=== PATIENT | female | born 1995 | race African-American/Black ===

== ENCOUNTER 2017-06-11 07:36 | Emergency (ER) | payer OTHER ==
[~2017-06-11] VITALS: Ht 170.2 cm; Wt 81.6 kg
[2017-06-11 07:58] VITALS: BP 172/94
--- NOTE | 2017-06-11 08:22 | PHYS DOC ---
Past Medical History Past Medical History: No Pertinent History Past Surgical History: No Surgical History Alcohol Use: None Drug Use: None Adult General Chief Complaint Chief Complaint: RIB PAIN [facility] HPI Patient is a 22 year old female with no significant medical history who presents today complaining of moderate pain wrapping around her ribs into her back that began this morning. Patient denies the pain waking her up. She states the pain is worse on deep breaths. She states she just had a baby 5 weeks ago, vaginal delivery at [facility]. Patient denies any issues during or delivery. She just started her menstrual cycle today. Patient is requesting we give her pain medicine before she can give us any urine. Informed patient we prefer to have urine do a test and then she can get pain medicine. I even offered a cup of water to drink. Review of Systems Review of Systems Constitutional: Denies fever or chills [] Eyes: Denies change in visual acuity, redness, or eye pain [] HENT: Denies nasal congestion or sore throat [] Respiratory: rib pain wrapping to her back Cardiovascular: No additional information not addressed in HPI [] GI: Denies abdominal pain, nausea, vomiting, bloody stools or diarrhea [] : Denies dysuria or hematuria [] Musculoskeletal: Denies back pain or joint pain [] Integument: Denies rash or skin lesions [] Neurologic: Denies headache, focal weakness or sensory changes [] Endocrine: Denies polyuria or polydipsia [] Current Medications Current Medications Current Medications Medications (Trade) Dose Ordered Sig/Andrade Start Time Stop Time Status Last Admin Dose Admin Sodium Chloride 1,000 ml @ 1,000 mls/hr 1X ONCE 06/11/17 08:45 06/11/17 09:44 Allergies Allergies Allergies Coded Allergies Type Severity Reaction Last Updated Verified No Known Drug Allergies 06/11/17 No Physical Exam Physical Exam Constitutional: Well developed, well nourished, no acute distress, non-toxic appearance. [] HENT: Normocephalic, atraumatic, bilateral external ears normal, oropharynx moist, no oral exudates, nose normal. [] Eyes: PERRLA, EOMI, conjunctiva normal, no discharge. [] Neck: Normal range of motion, no tenderness, supple, no stridor. [] Cardiovascular:Heart rate regular rhythm, no murmur [] Lungs & Thorax: Bilateral breath sounds clear to auscultation [] Abdomen: Bowel sounds normal, soft, no tenderness, no masses, no pulsatile masses. [] Skin: Warm, dry, no erythema, no rash. [] Back: No tenderness, no CVA tenderness. [] Extremities: No tenderness, no cyanosis, no clubbing, ROM intact, no edema. [] Neurologic: Alert and oriented X 3, normal motor function, normal sensory function, no focal deficits noted. [] Psychologic: Affect normal, judgement normal, mood normal. [] Current Patient Data Vital Signs Vital Signs Date Time Temp Pulse Resp B/P (MAP) Pulse Ox O2 Delivery O2 Flow Rate FiO2 06/11/17 07:58 98.0 83 22 100 Room Air 98.0 EKG EKG [] Radiology/Procedures Radiology/Procedures [] Course & Med Decision Making Course & Med Decision Making Pertinent Labs and Imaging studies reviewed. (See chart for details) This is a 22-year-old female patient who presents complaining of moderate rib pain wrapping around her back that began this morning. Patient had vaginal delivery 5 weeks ago. She has no previous medical history. Patient will be worked up for a PE. She has been asking for pain medicines since she arrived in the Ed. 08:26 Patient was informed she has to give us urine on arrival to the ED and we can do a test before we can give her pain medicine otherwise we can give her Tylenol. She states she has been taking Tylenol and it is not working. She continued to refuse to give use urine. She decided to sign out AMA. Dragon Disclaimer Dragon Disclaimer This electronic medical record was generated, in whole or in part, using a voice recognition dictation system. Departure Departure Impression: Primary Impression: Rib pain on right side Additional Impression: Rib pain on left side Disposition: AGAINST MEDICAL ADVICE Condition: STABLE Referrals: LORI CANTRELL MD (PCP) Problem Qualifiers CLOVER JACQUES APRN Jun 11, 2017 08:22
[2017-06-11] MEDS ORDERED: IV NORMAL SALINE 1000ML BAG 1,000 ML IV ONE (08:45)
== END 2017-06-11 08:42 | disposition left against medical advice (07) ==
LOC: ER 07:36
DX: O90.89 Other complications of the puerperium, not elsewhere classified (principal); R07.81 Pleurodynia
CPT/HCPCS: 99284

== ENCOUNTER 2018-10-30 16:04 | Emergency (ER) | payer OTHER ==
[~2018-10-30] VITALS: Ht 170.2 cm; Wt 104.3 kg
[2018-10-30 17:06] VITALS: BP 122/64
[2018-10-30 17:33] LABS: BILIRUBIN,URINE NEGATIVE (NEG); CLARITY,URINE CLOUDY; COLOR,URINE AMBER; NITRITE,URINE NEGATIVE (NEG); PROTEIN,URINE 30 mg/dL (NEG-TRACE)
[2018-10-30 17:39] LABS: SQUAMOUS EPITHELIAL CELL,UR MOD /LPF
[2018-10-30 17:40] LABS: BACTERIA,URINE FEW /HPF (0-FEW)
[2018-10-30] MEDS ORDERED: MICO1KIT75 VG (18:31)
[2018-10-30] MEDS ORDERED: NITR100C62 PO (18:31)
--- NOTE | 2018-10-30 18:31 | PHYS DOC ---
Past Medical History Past Medical History: No Pertinent History Past Surgical History: No Surgical History Alcohol Use: None Drug Use: None Adult General Chief Complaint Chief Complaint: VAGINAL PROBLEM HPI HPI Patient is a 23 year old female who presents with white cheesy discharge vaginally as well as some urinary urgency and frequency. The patient is currently and is seeing her vice investigator regularly for her appointments. She has not used [id number] medications other than vaginal still which she states did not offer relief. Review of Systems Review of Systems Constitutional: Denies fever or chills [] Eyes: Denies change in visual acuity, redness, or eye pain [] HENT: Denies nasal congestion or sore throat [] Respiratory: Denies cough or shortness of breath [] Cardiovascular: No additional information not addressed in HPI [] GI: Denies abdominal pain, nausea, vomiting, bloody stools or diarrhea [] : See history of present illness Musculoskeletal: Denies back pain or joint pain [] Integument: Denies rash or skin lesions [] Neurologic: Denies headache, focal weakness or sensory changes [] Endocrine: Denies polyuria or polydipsia [] All other systems were reviewed and found to be within normal limits, except as documented in this note. Allergies Allergies Allergies Coded Allergies Type Severity Reaction Last Updated Verified No Known Drug Allergies 06/11/17 No Physical Exam Physical Exam Constitutional: Well developed, well nourished, no acute distress, non-toxic appearance. [] Cardiovascular:Heart rate regular rhythm, no murmur [] Lungs & Thorax: Bilateral breath sounds clear to auscultation [] Abdomen: Bowel sounds normal, soft, no tenderness, no masses, no pulsatile masses. [] Skin: Warm, dry, no erythema, no rash. [] Back: No tenderness, no CVA tenderness. [] Extremities: No tenderness, no cyanosis, no clubbing, ROM intact, no edema. [] Neurologic: Alert and oriented X 3, normal motor function, normal sensory function, no focal deficits noted. [] Psychologic: Affect normal, judgement normal, mood normal. [] Current Patient Data Vital Signs Vital Signs Date Time Temp Pulse Resp B/P (MAP) Pulse Ox O2 Delivery O2 Flow Rate FiO2 10/30/18 17:06 98.0 85 16 122/64 (83) 100 Room Air 98.0 Lab Values Laboratory Tests Test 10/30/18 16:52 Urine Collection Type Unknown Urine Color Zeinab Urine Clarity Cloudy Urine pH 7.0 Urine Specific [place] >=1.030 Urine Protein 30 mg/dL (NEG-TRACE) Urine Glucose (UA) Negative mg/dL (NEG) Urine Ketones (Stick) 15 mg/dL (NEG) Urine Blood Negative (NEG) Urine Nitrite Negative (NEG) Urine Bilirubin Negative (NEG) Urine Urobilinogen Dipstick 1.0 mg/dL (0.2 mg/dL) Urine Leukocyte Esterase Small (NEG) Urine RBC 1-2 /HPF (0-2) Urine WBC 1-4 /HPF (0-4) Urine Squamous Epithelial Cells Mod /LPF Urine Bacteria Few /HPF (0-FEW) Urine Mucus Marked /LPF Microbiology 10/30/18 Wet Prep - Final, Complete EKG EKG [] Radiology/Procedures Radiology/Procedures [] Pelvic Exam: Knockup Worker present Abdomen: Nontender External Genitalia: Skin shows slight excoriation and edema Speculum: Normal vaginal mucosa, thick, white cheesy cervical discharge Bimanual: No adnexal masses or tenderness, No CMT Course & Med Decision Making Course & Med Decision Making Pertinent Labs and Imaging studies reviewed. (See chart for details) The patient is positive for a UTI and will be treated with Macrobid as well as with Monistat for her yeast infection. She is in agreement with this plan. Dragon Disclaimer Dragon Disclaimer This electronic medical record was generated, in whole or in part, using a voice recognition dictation system. Departure Departure Impression: Primary Impression: UTI (urinary tract infection) Additional Impression: Yeast infection Disposition: 01 HOME, SELF-CARE Condition: STABLE Referrals: NO PCP (PCP) Patient Instructions: - Urinary Tract Infection Additional Instructions: Take medication as directed. Follow-up with your vice investigator at your next scheduled appointment or return to the emergency department if worsening. Scripts Miconazole Nitrate (MONISTAT 3) 1 Each Kit 1 EACH VG 1X for yeast, #1 EACH Prov: CARMELITA BRANDT APRN 10/30/18 Nitrofurantoin Monohyd/M-Cryst (MACROBID 100 MG CAPSULE) 100 Mg Capsule 1 CAP PO BID for UTI, #14 CAP Prov: CARMELITA BRANDT APRN 10/30/18 Problem Qualifiers CARMELITA BRANDT APRN Oct 30, 2018 18:31
[2018-11-01 19:13] LABS: GC PROBE Negative (Negative)
== END 2018-10-30 18:38 | disposition home or self-care (01) ==
LOC: ER 16:04
DX: B37.49 Other urogenital candidiasis (principal)
CPT/HCPCS: 81001; 87086; 87491; 87591; 99283; Q0111

== ENCOUNTER 2019-05-11 07:57 | Emergency (ER) | payer SELFPAY ==
[~2019-05-11] VITALS: Ht 170.2 cm; Wt 94.8 kg
[~2019-05-11 07:57] MED LIST: MICO1KIT75 VG; NITR100C62 PO
[2019-05-11] MEDS ORDERED: LIDO:MAALOX 1:1 20 ML SINGLE DOSE. ONE (08:23)
[2019-05-11] MEDS ORDERED: LIDO:MAALOX 1:1 20 ML SINGLE DOSE. SWSW ONE (08:30)
--- NOTE | 2019-05-11 08:37 | PHYS DOC ---
Past Medical History Past Medical History: No Pertinent History Past Surgical History: No Surgical History Alcohol Use: None Drug Use: None Adult General Chief Complaint Chief Complaint: GI PROBLEM HPI HPI Patient is a 24 year old female presents to the ER with epigastric pain has been ongoing for several weeks. The patient states that she has been waking up quite a bit around midnight with epigastric pain. States she normally eats dinner around 5:00 to 8:00 at night. He normally goes to bed around 10:00 at night however sometimes it is later. The patient states that he goes away normally after couple hours however did not go away today. The patient presented to the ER eating kyle Simeons. Rates her pain as 8 out of 10 and describes it as sharp. No interventions attempted for this at home. Review of Systems Review of Systems Constitutional: Denies fever or chills [] Eyes: Denies change in visual acuity, redness, or eye pain [] HENT: Denies nasal congestion or sore throat [] Respiratory: Denies cough or shortness of breath [] Cardiovascular: No additional information not addressed in HPI [] GI: Reports epigastric abdominal pain, Denies nausea, vomiting, bloody stools or diarrhea [] : Denies dysuria or hematuria [] Musculoskeletal: Denies back pain or joint pain [] Integument: Denies rash or skin lesions [] Neurologic: Denies headache, focal weakness or sensory changes [] Endocrine: Denies polyuria or polydipsia [] Complete systems were reviewed and found to be within normal limits, except as documented in this note. Current Medications Current Medications Current Medications Medications (Trade) Dose Ordered Sig/Andrade Start Time Stop Time Status Last Admin Dose Admin Multi-Ingredient Mouthwash/Gargle (Gi Cocktail) 20 ml STK-MED ONCE 05/11/19 08:23 05/11/19 08:24 DC Allergies Allergies Allergies Coded Allergies Type Severity Reaction Last Updated Verified No Known Drug Allergies 06/11/17 No Physical Exam Physical Exam Constitutional: Well developed, well nourished, no acute distress, non-toxic appearance. [] HENT: Normocephalic, atraumatic, bilateral external ears normal, oropharynx moist, no oral exudates, throat has erythema, nose normal. [] Eyes: PERRLA, EOMI, conjunctiva normal, no discharge. [] Neck: Normal range of motion, no tenderness, supple, no stridor. [] Cardiovascular:Heart rate regular rhythm, no murmur [] Lungs & Thorax: Bilateral breath sounds clear to auscultation [] Abdomen: Bowel sounds normal, soft, epigastric tenderness, no masses, no pulsatile masses. [] Skin: Warm, dry, no erythema, no rash. [] Back: No tenderness, no CVA tenderness. [] Extremities: No tenderness, no cyanosis, no clubbing, ROM intact, no edema. [] Neurologic: Alert and oriented X 3, normal motor function, normal sensory function, no focal deficits noted. [] Psychologic: Affect normal, judgement normal, mood normal. [] Current Patient Data Vital Signs Vital Signs Date Time Temp Pulse Resp B/P (MAP) Pulse Ox O2 Delivery O2 Flow Rate FiO2 05/11/19 08:02 98.5 79 18 149/97 (114) 97 Room Air 98.5 Lab Values Laboratory Tests Test 05/11/19 08:05 05/11/19 08:09 05/11/19 08:28 Urine Collection Type Unknown Urine Color Yellow Urine Clarity Clear Urine pH 7.0 Urine Specific [place] 1.015 Urine Protein Negative mg/dL (NEG-TRACE) Urine Glucose (UA) Negative mg/dL (NEG) Urine Ketones (Stick) Negative mg/dL (NEG) Urine Blood Negative (NEG) Urine Nitrite Negative (NEG) Urine Bilirubin Negative (NEG) Urine Urobilinogen Dipstick 1.0 mg/dL (0.2 mg/dL) Urine Leukocyte Esterase Moderate (NEG) Urine RBC 0 /HPF (0-2) Urine WBC 5-10 /HPF (0-4) Urine Squamous Epithelial Cells Mod /LPF Urine Bacteria Few /HPF (0-FEW) POC Urine HCG, Qualitative Hcg negative (Negative) White Blood Count 9.4 x10^3/uL (4.0-11.0) Red Blood Count 5.38 x10^6/uL (3.50-5.40) Hemoglobin 12.6 g/dL (12.0-15.5) Hematocrit 38.3 % (36.0-47.0) Mean Corpuscular Volume 71 fL (79-100) L Mean Corpuscular Hemoglobin 23 pg (25-35) L Mean Corpuscular Hemoglobin Concent 33 g/dL (31-37) Red Cell Distribution Width 17.4 % (11.5-14.5) H Platelet Count 263 x10^3/uL (140-400) Neutrophils (%) (Auto) 71 % (31-73) Lymphocytes (%) (Auto) 19 % (24-48) L Monocytes (%) (Auto) 8 % (0-9) Eosinophils (%) (Auto) 2 % (0-3) Basophils (%) (Auto) 0 % (0-3) Neutrophils # (Auto) 6.7 x10^3uL (1.8-7.7) Lymphocytes # (Auto) 1.8 x10^3/uL (1.0-4.8) Monocytes # (Auto) 0.7 x10^3/uL (0.0-1.1) Eosinophils # (Auto) 0.2 x10^3/uL (0.0-0.7) Basophils # (Auto) 0.0 x10^3/uL (0.0-0.2) Platelet Estimate Adequate (ADEQUATE) Microcytosis Present Sodium Level 138 mmol/L (136-145) Potassium Level 4.0 mmol/L (3.5-5.1) Chloride Level 104 mmol/L (98-107) Carbon Dioxide Level 25 mmol/L (21-32) Anion Gap 9 (6-14) Blood Urea Nitrogen 11 mg/dL (7-20) Creatinine 0.8 mg/dL (0.6-1.0) Estimated GFR (Cockcroft-Gault) 104.9 BUN/Creatinine Ratio 14 (6-20) Glucose Level 98 mg/dL (70-99) Calcium Level 8.2 mg/dL (8.5-10.1) L Total Bilirubin 0.9 mg/dL (0.2-1.0) Aspartate Amino Transferase (AST) 18 U/L (15-37) Alanine Aminotransferase (ALT) 37 U/L (14-59) Alkaline Phosphatase 63 U/L (46-116) Total Protein 6.6 g/dL (6.4-8.2) Albumin 3.3 g/dL (3.4-5.0) L Albumin/Globulin Ratio 1.0 (1.0-1.7) Lipase 126 U/L (73-393) Laboratory Tests 05/11/19 08:28 Laboratory Tests 05/11/19 08:28 EKG EKG [] Radiology/Procedures Radiology/Procedures [] Course & Med Decision Making Course & Med Decision Making Pertinent Labs and Imaging studies reviewed. (See chart for details) Patient has epigastric tenderness, was eating Jalepeno Cheetos on arrival, the history is suggestive of gastritis. Will try a GI cocktail. Also will obtain labs to ensure that liver enzymes and lipase is not elevated. Labs are unremarkable. Urine shows leukocytes however it is also contaminated with Epithelial cells, patient is not symptomatic and so will have urine cultur ed and treat based on that. Discussed with patient who was agreeable to this plan. Patient improved with GI cocktail, will d/c home on Protonix and have follow up with a primary care provider. Dragon Disclaimer Dragon Disclaimer This electronic medical record was generated, in whole or in part, using a voice recognition dictation system. Departure Departure Impression: Primary Impression: Gastroesophageal reflux disease Disposition: HOME, SELF-CARE Condition: STABLE Referrals: NO PCP (PCP) Patient Instructions: Diet for Gastroesophageal Reflux Disease, Adult, Gastroesophageal Reflux Disease, Adult Additional Instructions: Thank you for visiting [facility]. We appreciate you trusting us with your care. If any additional problems come up don't hesitate to return to visit us. Please follow up with your primary care provider so they can plan additional care if needed and know about the problem that you had. If symptoms worsen come back to the Emergency Department. Any concerning symptoms that start such as chest pain, shortness of air, weakness or numbness on one side of the body, running high fevers or any other concerning symptoms return to the ER. Please fill your medications at any pharmacy and follow the prescription instructions. Please follow the diet outlined in discharge instruction to see if it helps symptoms. Scripts Pantoprazole Sodium (PROTONIX ) 40 Mg Tablet. 40 MG PO DAILYAC for GERD for 30 Days, #30 TAB Prov: CONOR LADD APRN 05/11/19 Problem Qualifiers Primary Impression: Gastroesophageal reflux disease Esophagitis presence: with esophagitis Qualified Codes: K21.0 - Gastro- esophageal reflux disease with esophagitis CONOR LADD APRN May 11, 2019 08:37
[2019-05-11 08:38] LABS: BASO % 0 % (0-3); EOS # 0.2 x10^3/uL (0.0-0.7); EOS % 2 % (0-3); HEMATOCRIT 38.3 % (36.0-47.0); HEMOGLOBIN 12.6 g/dL (12.0-15.5); LYMPH # 1.8 x10^3/uL (1.0-4.8); LYMPH % 19 % (24-48); MEAN CORPUSCULAR HEMOGLOBIN 23 pg (25-35); MEAN CORPUSCULAR HGB CONC 33 g/dL (31-37); MEAN CORPUSCULAR VOLUME 71 fL (79-100); MONO # 0.7 x10^3/uL (0.0-1.1); MONO % 8 % (0-9); NEUT # 6.7 x10^3uL (1.8-7.7); NEUT % 71 % (31-73); PLATELET COUNT 263 x10^3/uL (140-400); RED BLOOD COUNT 5.38 x10^6/uL (3.50-5.40); RED CELL DISTRIBUTION WIDTH 17.4 % (11.5-14.5); WHITE BLOOD COUNT 9.4 x10^3/uL (4.0-11.0)
[2019-05-11 08:48] LABS: BILIRUBIN,URINE NEGATIVE (NEG); CLARITY,URINE CLEAR; COLOR,URINE YELLOW; NITRITE,URINE NEGATIVE (NEG); PROTEIN,URINE NEGATIVE (NEG-TRACE)
[2019-05-11 08:50] LABS: BACTERIA,URINE FEW /HPF (0-FEW); RBC,URINE 0 /HPF (0-2); SQUAMOUS EPITHELIAL CELL,UR MOD /LPF
[2019-05-11 09:00] LABS: CALCIUM 8.2 mg/dL (8.5-10.1); CREATININE 0.8 mg/dL (0.6-1.0); GFR 104.9
[2019-05-11 09:05] LABS: ALBUMIN 3.3 g/dL (3.4-5.0); TOTAL BILIRUBIN 0.9 mg/dL (0.2-1.0); TOTAL PROTEIN 6.6 g/dL (6.4-8.2)
[2019-05-11 09:50] LABS: PLT ESTIMATE ADEQUATE (ADEQUATE)
[2019-05-11 09:51] LABS: MICROCYTOSIS PRESENT
[2019-05-11 10:05] VITALS: BP 145/87
[2019-05-11] MEDS ORDERED: PANT40TA77 PO (10:10)
== END 2019-05-11 10:35 | disposition home or self-care (01) ==
LOC: ER 07:57
DX: K21.9 Gastro-esophageal reflux disease without esophagitis (principal)
CPT/HCPCS: 36415; 80053; 81001; 81025; 83690; 85025; 87086; 99284

== ENCOUNTER 2019-06-24 19:38 | Emergency (ER) | payer SELFPAY ==
[~2019-06-24] VITALS: Ht 170.2 cm; Wt 94.8 kg
[~2019-06-24 19:38] MED LIST changes: +PANT40TA77 PO
[2019-06-24 19:45] VITALS: BP 168/101
[2019-06-24] MEDS ORDERED: ONDANSETRON ODT 4 MG TAB.RAPDIS. PO ONE (20:00)
[2019-06-24] MEDS ORDERED: LIDO:MAALOX 1:1 20 ML SINGLE DOSE. SWSW ONE (20:00)
--- NOTE | 2019-06-24 20:55 | RAD ---
Limited abdomen ultrasound HISTORY: Right upper quadrant abdominal pain. FINDINGS: The pancreas and upper abdominal aorta and IVC are normal, the lower abdominal segments of the vessels are obscured by bowel gas shadowing. Normal liver echogenicity. No liver mass, nodularity or surface irregularity documented. Upper segments of the liver poorly visualized due to rib shadowing. Hepatopedal portal vein blood flow is documented. Small gallstones are present. No inflammatory changes of the gallbladder. No biliary ductal dilation the common bile duct diameter is 4 mm. Right renal length 10.9 cm. No right renal mass, calculus or hydronephrosis documented. Spleen and left kidney were not evaluated. IMPRESSION: Cholelithiasis. No inflammatory changes of the gallbladder. No biliary ductal dilation. Electronically signed by: Ricky Mejia MD (06/24/2019 8:52 PM) [facility]
--- NOTE | 2019-06-24 21:01 | PHYS DOC ---
Past Medical History Past Medical History: No Pertinent History (CLOVER JACQUES APRN) Past Surgical History: No Surgical History (CLOVER JACQUES APRN) Alcohol Use: None Drug Use: None (CLOVER JACQUES APRN) Adult General Chief Complaint Chief Complaint: CHEST PAIN HPI HPI Patient is a 24 year old female with a history of acid reflex presenting to the ED today complaining of sharp stabbing 9 out of 10 epigastric abdominal pain nonradiating in nature that began after having Ashish. Patient denies any nausea, vomiting. She states she's had similar pain with her acid reflex. Denies anything specifically exacerbating or relieving the pain. (CLOVER JACQUES APRN) Review of Systems Review of Systems Constitutional: Denies fever or chills [] Eyes: Denies change in visual acuity, redness, or eye pain [] HENT: Denies nasal congestion or sore throat [] Respiratory: Denies cough or shortness of breath [] Cardiovascular: Reports epigastric abdominal pain GI: Reports epigastric abdominal pain, denies nausea, vomiting, bloody stools or diarrhea [] : Denies dysuria or hematuria [] Musculoskeletal: Denies back pain or joint pain [] Integument: Denies rash or skin lesions [] Neurologic: Denies headache, focal weakness or sensory changes [] All other systems were reviewed and found to be within normal limits, except as documented in this note. (CLOVER JACQUES APRN) Current Medications Current Medications Current Medications Medications (Trade) Dose Ordered Sig/Andrade Start Time Stop Time Status Last Admin Dose Admin Multi-Ingredient Mouthwash/Gargle (Gi Cocktail) 20 ml 1X ONCE 06/24/19 20:00 06/24/19 20:01 DC 06/24/19 19:57 20 ML Ondansetron HCl (Zofran Odt) 4 mg 1X ONCE 06/24/19 20:00 06/24/19 20:01 DC 06/24/19 19:57 4 MG (CONOR SAUCEDO DO) Allergies Allergies Allergies Coded Allergies Type Severity Reaction Last Updated Verified No Known Drug Allergies 06/11/17 No (CONOR SAUCEDO DO) Physical Exam Physical Exam Constitutional: Well developed, well nourished, no acute distress, non-toxic appearance. [] HENT: Normocephalic, atraumatic, bilateral external ears normal, oropharynx moist, no oral exudates, nose normal. [] Eyes: PERRLA, EOMI, conjunctiva normal, no discharge. [] Neck: Normal range of motion, no tenderness, supple, no stridor. [] Cardiovascular:Heart rate regular rhythm, no murmur [] Lungs & Thorax: Bilateral breath sounds clear to auscultation [] Abdomen: Mild tenderness on palpation of the epigastric region as well as right upper quadrant, negative Tarango sign. Bowel sounds normal, soft, no right lower quadrant tenderness, no masses, no pulsatile masses. [] Skin: Warm, dry, no erythema, no rash. [] Back: No tenderness, no CVA tenderness. [] Extremities: No tenderness, no cyanosis, no clubbing, ROM intact, no edema. [] Neurologic: Alert and oriented X 3, normal motor function, normal sensory function, no focal deficits noted. [] Psychologic: Affect normal, judgement normal, mood normal. [] (CLOVER JACQUES APRN) Current Patient Data Vital Signs Vital Signs Date Time Temp Pulse Resp B/P (MAP) Pulse Ox O2 Delivery O2 Flow Rate FiO2 06/24/19 19:45 98.8 72 20 168/101 (123) 99 Room Air 98.8 (CONOR SAUCEDO DO) EKG EKG [address] Saucedo sinus rhythm HR 75 no STEMI[] (CLOVER JACQUES HARVESTING CONTRACTOR) Radiology/Procedures Radiology/Procedures []PROCEDURE: ABDOMEN LTD Limited abdomen ultrasound HISTORY: Right upper quadrant abdominal pain. FINDINGS: The pancreas and upper abdominal aorta and IVC are normal, the lower abdominal segments of the vessels are obscured by bowel gas shadowing. Normal liver echogenicity. No liver mass, nodularity or surface irregularity documented. Upper segments of the liver poorly visualized due to rib shadowing. Hepatopedal portal vein blood flow is documented. Small gallstones are present. No inflammatory changes of the gallbladder. No biliary ductal dilation the common bile duct diameter is 4 mm. Right renal length 10.9 cm. No right renal mass, calculus or hydronephrosis documented. Spleen and left kidney were not evaluated. IMPRESSION: Cholelithiasis. No inflammatory changes of the gallbladder. No biliary ductal dilation. Electronically signed by: Mireille Mejia MD (06/24/2019 8:52 PM) [facility] DICTATED and SIGNED BY: MIREILLE MEJIA MD DATE: 06/24/192051 (CLOVER JACQUES APRN) Course & Med Decision Making Course & Med Decision Making Pertinent Labs and Imaging studies reviewed. (See chart for details) This is a 24-year-old. Patient with history of acid reflex presented to the with epigastric abdominal pain after eating Ashish. Abdominal ultrasound is noted for cholelithiasis, patient was given GI cocktail with relief. Educated on the disease processes for cholelithiasis. Provided general surgery for follow-up. Pepcid for acid reflex. OTC pain relievers. (CLOVER JACQUES APRN) Dragon Disclaimer Dragon Disclaimer This electronic medical record was generated, in whole or in part, using a voice recognition dictation system. (CLOVER JACQUES APRN) Departure Departure Impression: Primary Impression: Gastroesophageal reflux disease Additional Impression: Cholelithiasis Disposition: 01 HOME, SELF-CARE Condition: STABLE Referrals: NO PCP (PCP) ANJELICA HURTADO MD follow-up in one week DIDI DYE MD follow up in one week Patient Instructions: Cholelithiasis, Diet for Gastroesophageal Reflux Disease, Adult, [id number], Gastroesophageal Reflux Disease, Adult Additional Instructions: You were evaluated in the emergency room for acid reflex and was noted to have gallstones. Please follow-up with the provided general surgeon as well as a GI specialist in one week. Avoid eating fatty spicy foods. Avoid eating heavy/be meals especially before bed time. Scripts Famotidine (PEPCID) 20 Mg Tablet 20 MG PO DAILY, #20 TAB Prov: CLOVER JACQUES APRN 06/24/19 Attending Signature Attending Signature I have reviewed the PA/BEHAVIORAL HEALTH AIDE's note and plan of care. I was available for consul tation as needed during the patient's visit in the emergency department. I agree with the clinical impression, plan, and disposition. (CONOR SAUCEDO DO) Problem Qualifiers Primary Impression: Gastroesophageal reflux disease Esophagitis presence: esophagitis presence not specified Qualified Codes: K21.9 - Gastro-esophageal reflux disease without esophagitis Additional Impression: Cholelithiasis Cholelithiasis location: gallbladder Cholecystitis presence: without cholecystitis Biliary obstruction: without biliary obstruction Qualified Codes: K80.20 - Calculus of gallbladder without cholecystitis without obstruction CLOVER JACQUES APRN Jun 24, 2019 21:01 CONOR SAUCEDO DO Jun 25, 2019 02:04
[2019-06-24] MEDS ORDERED: FAMO-63 PO (21:19)
--- NOTE | 2019-06-25 12:55 | EKG ---
[facility] [address] [place] [address] Test Date: 2019-06-24 Test Time: 19:40:29 Pat Name: ANNETTE RODRIGUEZ Department: Room: Gender: F Floors Buffer: : 1995 Requested By: CLOVER JACQUES Order Number: [id number] Reading MD: Washington Mims MD Measurements Intervals [place] Rate: 74 P: 0 PA: 124 QRS: 24 QRSD: 78 T: 29 QT: 368 QTc: 413 Interpretive Statements SINUS RHYTHM ATRIAL PREMATURE COMPLEX(ES) Electronically Signed On 06-30-2019 17:30:08 CDT by Washington Mims MD
== END 2019-06-24 21:23 | disposition home or self-care (01) ==
LOC: ER 19:38
DX: K21.9 Gastro-esophageal reflux disease without esophagitis (principal); K80.20 Calculus of gallbladder without cholecystitis without obstruction
CPT/HCPCS: 76705; 93005; 99284; Q0162